=== PATIENT | female | born 1975 | race Caucasian/White ===

== ENCOUNTER 2022-04-01 14:27 | Outpatient (REF) | payer MEDICAID, SELFPAY ==
[2022-04-01 15:39] LABS: HGB 12.6 g/dL (11.2-15.7); MCH 31.9 pg (27.0-33.0); MCHC 34.1 % (32.0-36.0); MCV 94 fL (80-95); MPV 9.7 fL (8.0-11.0); Platelet Count 303 10^3/uL (130-400); RBC 3.95 10^6/uL (3.93-5.22); RDW 12.9 % (11.7-14.6); RDW-SD 44.9 fL; WBC 5.06 10^3/uL (4.4-10.8)
[2022-04-01 16:07] LABS: ALT 20 U/L (14-59); AST 15 U/L (15-37); Alkaline Phosphatase 55 U/L (46-116); Anion Gap 6.7 mmol/L (3-11); BUN 10 mg/dL (7-18); Bilirubin, Total 0.4 mg/dL (0.2-1.0); CO2 29.3 mmol/L (21.0-32.0); CREATININE 0.6 mg/dL (0.55-1.02); Chloride 101 mmol/L (98-107); Glucose 95 mg/dL (74-106); Potassium 3.8 mmol/L (3.5-5.1); Sodium 137 mmol/L (136-145); TSH (W/Ref FT4) 1.74 uIU/mL (0.36-3.74); Total Protein 7.7 g/dL (6.4-8.2)
== END 2022-04-01 14:28 | disposition home or self-care (01) ==
LOC: NCHCN 14:27
PROVIDERS: Visit Provider Nurse Practitioner Family
DX: F41.8 Other specified anxiety disorders (principal); F10.11 Alcohol abuse, in remission; R79.89 Other specified abnormal findings of blood chemistry
CPT/HCPCS: 80053; 85027; 84443

== ENCOUNTER 2022-05-31 13:31 | Outpatient (REF) | payer MEDICAID, SELFPAY ==
--- NOTE | 2022-05-31 09:45 | PAPFT_PTH ---
PATIENT: Fay Hodges LOC: [facility] U#:[id number] AGE/SX: 46/F ROOM: RE05/31/[address]: DIALLO CARRILLO NP : 1975 BED: DIS: 05/31/2022 SPEC #: [id number] RECD: 05/31/22 18:49 STATUS: TORREY RECuco #: [id number] FRANKI: 05/31/22 09:[address]: DIALLO CARRILLO DEPT: [facility] Cytology RECD BY: Inez Castro Tissues: 1 - CX/ENDOCX FOR PAP SMEARS Procedures: PAP THIN PREP/[facility] Screening Comments: [id number] (UNSATISFACTORY FOR EVALUATION)
== END 2022-05-31 13:32 | disposition home or self-care (01) ==
LOC: NCHCN 13:31
PROVIDERS: PCP Nurse Practitioner Family; Visit Provider Nurse Practitioner Family
DX: Z12.4 Encounter for screening for malignant neoplasm of cervix (principal); R87.615 Unsatisfactory cytologic smear of cervix
CPT/HCPCS: 88142

== ENCOUNTER 2022-06-30 08:53 | Outpatient (REF) | payer MEDICAID, SELFPAY ==
[2022-06-30 16:41] LABS: Calculated LDL 180 mg/dL (<100); Cholesterol 270 mg/dL (<200); HDL Cholesterol 54 mg/dL (40-60); Triglyceride 183 mg/dL (<150)
== END 2022-06-30 08:54 | disposition home or self-care (01) ==
LOC: NCHCN 08:53
PROVIDERS: PCP Nurse Practitioner Family; Visit Provider Nurse Practitioner Family
DX: E78.5 Hyperlipidemia, unspecified (principal)
CPT/HCPCS: 80061